=== PATIENT | female | born 1960 | race Caucasian/White ===

== ENCOUNTER → 2017-07-21 | Outpatient (CLI) | payer OTHER ==
--- NOTE | 2017-07-25 11:08 | MM ---
Reason for exam: screening (asymptomatic). Last mammogram was performed 1 year and 5 months ago. History: Patient is postmenopausal, has history of high-risk lesion on a previous biopsy at age 49, and is nulliparous. Family history of breast cancer in maternal aunt. Benign left breast needle localization of both breasts, July 31, 2010. High risk left mammotome panel of the left breast, July 15, 2010. Excisional biopsy of the left breast, 2003. Took hormonal contraceptives for 3 years beginning at age 20. Physical Findings: A clinical breast exam by your physician is recommended on an annual basis and results should be correlated with mammographic findings. MG 3D Screening Mammo W/Cad Bilateral CC and MLO view(s) were taken. Prior study comparison: March 01, 2016, bilateral MG 3d screening mammo w/cad. November 26, 2014, mammogram, performed at [facility]. The breast tissue is heterogeneously dense. This may lower the sensitivity of mammography. No suspicious abnormality. No significant changes when compared with prior studies. ASSESSMENT: Negative, BI-RAD 1 RECOMMENDATION: Routine screening mammogram of both breasts in 1 year.
== END | disposition home or self-care (01) ==
LOC: RADMAMWWP 06:52
PROVIDERS: ATTEND Family Medicine
DX: Z12.31 Encounter for screening mammogram for malignant neoplasm of breast (principal)
CPT/HCPCS: 77063; 77067

== ENCOUNTER → 2018-02-01 | Outpatient (CLI) | payer OTHER ==
--- NOTE | 2018-02-01 11:24 | US ---
EXAMINATION TYPE: US kidneys/renal and bladder DATE OF EXAM: 02/01/2018 COMPARISON: NONE CLINICAL HISTORY: Hematuria R31.9, R30.9 Painful Micturation. EXAM MEASUREMENTS: Right Kidney: 11.5 x x6.5 x 6.2 cm Left Kidney: 11.0 x 7.0 x 6.6 cm Right Kidney: No hydronephrosis or masses seen Left Kidney: No hydronephrosis or masses seen; dromedary hump Bladder: distended Bilateral Jets seen: Yes There is no evidence for hydronephrosis at this point in time. No nephrolithiasis is seen. No nicci s are identified. The urinary bladder is anechoic. Bilateral ureteral jets are seen. IMPRESSION: No distinct abnormality appreciated.
== END ==
LOC: RADUSWWP 10:41
PROVIDERS: ATTEND Family Medicine
DX: R31.9 Hematuria, unspecified (principal); R30.9 Painful micturition, unspecified
CPT/HCPCS: 76770

== ENCOUNTER → 2018-03-29 | Outpatient (CLI) | payer OTHER ==
--- NOTE | 2018-03-29 10:29 | CT ---
EXAMINATION TYPE: CT chest wo/w con DATE OF EXAM: 03/29/2018 COMPARISON: None HISTORY: Sarcoidosis CT DLP: 1213.6 mGycm, Automated exposure control for dose reduction was used. CONTRAST: Performed injected with 100 mL of Isovue 300. TECHNIQUE: Axial images were obtained at 5 mm thick sections. Reconstructed images are reviewed on Luminescent computer in the coronal plane. Images are evaluated pre and postcontrast. FINDINGS: Portion of the thyroid visualized is normal. No suspicious lung nodules or focal infiltrates are present. There is a 0.4 cm density within the per iphery of the right lung within the major fissure. Series 4 image 38. Monitoring of this area is harvinder mmended. No enlarged mediastinal or hilar adenopathy is evident. Couple of small shotty lymph nodes are pres ent. Tracheobronchial tree is visualized is normal. The ascending aorta diameter at the level of the main pulmonary artery is 3.1 cm. The main pulmonary artery diameter at the bifurcation is 2.[address] sections are obtained through the upper abdomen. Abdomen is essentially unremarkable. Note is made of a mild scoliosis to the thoracic spine. IMPRESSIONS: 1. 0.4 cm nodularity within the major fissure on the right base. Follow-up exam in 6 months is recomm ended.
== END ==
LOC: RADCTMAIN 06:41
PROVIDERS: ATTEND Internal Medicine Rheumatology
DX: J98.8 Other specified respiratory disorders (principal)
CPT/HCPCS: 71270; Q9967

== ENCOUNTER → 2018-09-27 | Outpatient (CLI) | payer OTHER ==
--- NOTE | 2018-09-27 11:15 | CT ---
EXAMINATION TYPE: CT chest wo/w con DATE OF EXAM: 09/27/2018 COMPARISON: 03/29/2018 HISTORY: Abnormal finding of lung CT DLP: 1027.20 mGycm. Automated Exposure Control for Dose Reduction was Utilized. TECHNIQUE: CT scan of the thorax is performed following without and with IV Contrast, patient inject ed with 100 ml mL of Isovue 300. FINDINGS: LUNGS: Minimal bibasilar subsegmental dependent atelectasis is seen. There are few scattered thin-wal led lung cysts/paraseptal blebs. There is no pleural effusion or pneumothorax seen. The tracheobronc hial tree is patent. There is decreased conspicuity of the now 2 mm pulmonary nodule in comparison to the prior of 03/29/2018 of the density near the right interlobar fissure appearing to represent a sm aller intrafissural lymph node. MEDIASTINUM: There are no greater than 1 cm hilar or mediastinal lymph nodes. No pericardial effusi on is seen. OTHER: A 1.9 cm left adrenal gland lesion is low-density meeting criteria for a benign lipid rich antony noma. Old healed right lateral rib fracture is present of rib 5 and rib 6. Minimal degenerative nieves es of the spine. IMPRESSION: 1. Smaller and less conspicuous nodule along the right interlobar fissure relating to a benign intraf issural lymph node. 2. Benign lipid rich left adrenal adenoma is incidentally seen.
== END | disposition home or self-care (01) ==
LOC: RADCTMAIN 08:58
PROVIDERS: ATTEND Family Medicine
DX: R91.1 Solitary pulmonary nodule (principal)
CPT/HCPCS: 71270; Q9967

== ENCOUNTER → 2019-12-11 | Outpatient (CLI) | payer OTHER ==
--- NOTE | 2019-12-17 11:55 | MM ---
Reason for exam: screening (asymptomatic). Last mammogram was performed 1 year and 4 months ago. History: Patient is postmenopausal, has history of high-risk lesion on a previous biopsy at age 49, and is nulliparous. Family history of breast cancer in maternal aunt and breast cancer in mother at age 79. Benign left breast needle localization of both breasts, July 31, 2010. High risk left mammotome panel of the left breast, July 15, 2010. Excisional biopsy of the left breast, 2003. Took hormonal contraceptives for 3 years beginning at age 20. Physical Findings: A clinical breast exam by your physician is recommended on an annual basis and results should be correlated with mammographic findings. MG 3D Screening Mammo W/Cad Bilateral CC and MLO view(s) were taken. Prior study comparison: July 27, 2018, bilateral MG 3d screening mammo w/cad. July 21, 2017, bilateral MG 3d screening mammo w/cad. There are scattered fibroglandular densities. There are benign appearing round calcifications bilaterally. There is no discrete abnormality. ASSESSMENT: Benign, BI-RAD 2 RECOMMENDATION: Routine screening mammogram of both breasts in 1 year.
== END | disposition home or self-care (01) ==
LOC: RADMAMWWP 14:52
PROVIDERS: ATTEND Family Medicine
DX: Z12.31 Encounter for screening mammogram for malignant neoplasm of breast (principal)
CPT/HCPCS: 77063; 77067

== ENCOUNTER → 2021-05-29 | Outpatient (CLI) | payer OTHER ==
--- NOTE | 2021-05-29 12:47 | MM ---
Reason for exam: screening (asymptomatic). Last mammogram was performed 1 year and 6 months ago. History: Patient is postmenopausal, has history of high-risk lesion on a previous biopsy at age 49, and is nulliparous. Family history of breast cancer in maternal aunt and breast cancer in mother at age 79. Benign left breast needle localization of both breasts, July 31, 2010. High risk left mammotome panel of the left breast, July 15, 2010. Excisional biopsy of the left breast, 2003. Took hormonal contraceptives for 3 years beginning at age 20. Physical Findings: A clinical breast exam by your physician is recommended on an annual basis and results should be correlated with mammographic findings. MG 3D Screening Mammo W/Cad Bilateral CC and MLO view(s) were taken. Prior study comparison: December 11, 2019, bilateral MG 3d screening mammo w/cad. July 27, 2018, bilateral MG 3d screening mammo w/cad. There are scattered fibroglandular densities. There are benign appearing round calcifications bilaterally. There is chronic nodularity in the left breast. There is no discrete abnormality. ASSESSMENT: Benign, BI-RAD 2 RECOMMENDATION: Routine screening mammogram of both breasts in 1 year.
== END | disposition home or self-care (01) ==
LOC: RADMAMWWP 08:05
PROVIDERS: ATTEND Family Medicine
DX: Z12.31 Encounter for screening mammogram for malignant neoplasm of breast (principal); Z78.0 Asymptomatic menopausal state; Z80.3 Family history of malignant neoplasm of breast
CPT/HCPCS: 77063; 77067

== ENCOUNTER 2021-11-27 06:13 | Emergency (ER) | payer OTHER ==
[2021-11-27 06:22] VITALS: TEMP 98.1
[2021-11-27] MEDS ORDERED: SODIUM CHLORIDE 0.9% 500 ML 500 ML IV STA (06:43)
[2021-11-27] MEDS ORDERED: ONDANSETRON 4 MG/2 ML VIAL IVP STA (06:43)
[2021-11-27] MEDS ORDERED: HYDROmorphone 0.5 MG/0.5 ML SYRINGE IVP STA (06:43)
--- NOTE | 2021-11-27 06:46 | ED ---
Upper Extremity HPI <Nico Brooke - Last Filed: 11/27/21 08:03> - General Source: patient Mode of arrival: ambulatory Limitations: no limitations <Taj Hudson - Last Filed: 11/27/21 08:29> - General Chief Complaint: Extremity Injury, Upper Stated Complaint: poss broken wrist Time Seen by Provider: 11/27/21 06:17 - History of Present Illness Initial Comments: This a 61-year-old female presents emergency Department with chief complaint of left first injury. Patient states she slipped on the tile floor causing her to fall. Patient landed on her left wrist. Patient states is deformed no head injury no loss conscious denies any other injury associated with her fall. Patient has no current paresthesias. Patient denies any prior surgeries to her left wrist. (Taj Hudson) - Related Data Allergies Allergy/AdvReac Type Severity Reaction Status Date / Time Sulfa (Sulfonamide Allergy Anaphylaxis Verified 11/27/21 06:22 Antibiotics) Review of Systems ROS Other: All systems not noted in ROS Statement are negative. <Nico Brooke - Last Filed: 11/27/21 08:03> ROS Other: All systems not noted in ROS Statement are negative. <Taj Hudson - Last Filed: 11/27/21 08:29> ROS Statement: Those systems with pertinent positive or pertinent negative responses have been documented in the HPI. Past Medical History Past Medical History: Hypertension History of Any Multi-Drug Resistant Organisms: None Reported Past Surgical History: Hysterectomy Past Psychological History: No Psychological Hx Reported Smoking Status: Never smoker Past Alcohol Use History: Occasional Past Drug Use History: None Reported <Taj Hudson - Last Filed: 11/27/21 08:29> General Exam Limitations: no limitations General appearance: alert, in no apparent distress Head exam: Present: atraumatic, normocephalic, normal inspection Respiratory exam: Present: normal lung sounds bilaterally. Absent: respiratory distress, wheezes, rales, rhonchi, stridor Cardiovascular Exam: Present: regular rate, normal rhythm, normal heart sounds. Absent: systolic murmur, diastolic murmur, rubs, gallop, clicks Extremities exam: Present: other (Left wrist distal radius, ulna obvious deformity neurovascular intact, diffuse tenderness.) Neurological exam: Present: alert, oriented X3 Skin exam: Present: warm, dry, intact, normal color. Absent: rash <Taj Hudson - Last Filed: 11/27/21 08:29> Course Vital Signs 11/27/21 11/27/21 11/27/21 06:16 07:34 07:39 Temperature 98.1 F Pulse Rate 102 H 89 87 Respiratory 18 16 16 Rate Blood Pressure 194/144 144/114 168/104 O2 Sat by Pulse 96 96 100 Oximetry 11/27/21 11/27/21 11/27/21 07:44 07:49 08:04 Temperature Pulse Rate 82 103 H 75 Respiratory 16 16 18 Rate Blood Pressure 159/96 156/109 169/96 O2 Sat by Pulse 95 93 L 94 L Oximetry 11/27/21 08:19 Temperature Pulse Rate 71 Respiratory 18 Rate Blood Pressure 148/106 O2 Sat by Pulse 94 L Oximetry Procedures - Procedural Sedation Procedural Sedation Start Time: :34 Procedural Sedation Stop Time: :44 Indications: fracture/dislocation reduction ASA Class: I Mallampati Airway Score: 2 Preparation: cardiac rehab nurse applied, pulse oximeter, capnometry used, supplemental O2 applied, suction/airway equipment at bedside, IV secured IV Propofol Dose (mgs): 80 Complications: none Patient Tolerated Procedure: well <Nico Brooke - Last Filed: 11/27/21 08:03> - Orthopedic Fracture Reduction Fracture #1 Consent Obtained: written consent Side: left Fracture Reduction Location: radius, ulna Analgesia: procedural sedation Technique: direct manipulation Post Reduction X-rays Demonstrate: acceptable reduction Post-Reduction Neuro Exam: intact Post-Reduction Vascular Exam: intact Splint Applied: Yes Patient Tolerated Procedure: well, no complications - Orthopedic Splinting/Casting Injury #1 Side: left Upper Extremity Injury Location: wrist Upper Extremity Immobilizer: sugar tong splint, synthetic pre-padded splint <Taj Hudson - Last Filed: 11/27/21 08:29> Medical Decision Making <Taj Hudson - Last Filed: 11/27/21 08:29> - Medical Decision Making 54-year-old female presented for fall. Patient did have displaced angular fracture of her left wrist attempted reduction, tibial fracture. There was some mild improvement with angulation. I discussed the case with advanced orthopedics Dr. Grady in which the patient is to call office today and will be seen on Tuesday. (Taj Hudson) Disposition <Nico Brooke - Last Filed: 11/27/21 08:03> Is patient prescribed a controlled substance at d/c from ED?: No Time of Disposition: 08:29 <Taj Hudson - Last Filed: 11/27/21 08:29> Clinical Impression: Distal radius fracture, left Disposition: HOME SELF-CARE Condition: Stable Instructions (If sedation given, give patient instructions): Arm Fracture in Adults (ED), Moderate Sedation (ED) Additional Instructions: Please return to the Emergency Department if symptoms worsen or any other concerns. Referrals: Candi Avery MD [Primary Care Provider] - 1-2 days Jorge A De Los Santos DO [Doctor of Osteopathic Medicine] - 1-2 days
--- NOTE | 2021-11-27 07:05 | XR ---
EXAMINATION TYPE: XR wrist complete LT DATE OF EXAM: 11/27/2021 6:40 AM INDICATION: Patient age:Female; 61 years old; Reason for study: pain; COMPARISON: None TECHNIQUE: 4 views of the left wrist. Frontal, navicular, lateral, and oblique. FINDINGS: Impacted distal left radius fracture with dorsal angulation. There is extension into the di stal radioulnar joint. Definitive extension to the radioulnar joint. There is soft tissue swelling wr ist. No additional fractures identified. IMPRESSION: Acute left distal radius impacted fracture with dorsal angulation intra-articular extension into the distal radioulnar joint.
[2021-11-27] MEDS: PROPOFOL 10 MG/ML 20 ML VIAL IV STA ×3 (07:33→07:53)
[2021-11-27 08:06] VITALS: RESP 18
--- NOTE | 2021-11-27 08:13 | XR ---
EXAMINATION TYPE: XR wrist limited LT DATE OF EXAM: 11/27/2021 CLINICAL HISTORY: pain TECHNIQUE: Post reduction left wrist 2 views COMPARISON: None. FINDINGS: Overlying cast material does obscure fine bony detail. Previously described distal radial f racture with comminution and displacement persists. There is improved angulation. Displacement persis ts. IMPRESSION: As above
[2021-11-27] MEDS ORDERED: KETOROLAC 15 MG/ML 1 ML VIAL IVP STA (08:28)
[2021-11-27] MEDS ORDERED: ACET/COD 300 MG/30 MG STARTER PACK 6 TAB BTL PO STA (08:29)
[2021-11-27 09:16] VITALS: BP 157/97; PULSE 65
== END 2021-11-27 09:19 | disposition home or self-care (01) ==
LOC: EC 06:13
DX: S52.502A Unspecified fracture of the lower end of left radius, initial encounter for closed fracture (principal); Z88.2 Allergy status to sulfonamides; I10 Essential (primary) hypertension; W19.XXXA Unspecified fall, initial encounter
CPT/HCPCS: 73100; 73110; 25605; 99284; J2405; J1885; J2704; J1170

== ENCOUNTER → 2021-12-01 | Outpatient (CLI) | payer OTHER ==
[2021-12-01 14:19] LABS: Basophils # (A) 0.05 X 10*3/uL (0.00-0.10); Basophils % (A) 0.8 %; Eosinophils % (A) 3.1 %; HCT 44.7 % (37.2-46.3); HGB 14.5 g/dL (12.0-15.0); Immature Grans, Automated 0.5 %; Lymphocytes # (A) 1.71 X 10*3/uL (0.90-5.00); Lymphocytes % (A) 26.3 %; MCH 29.4 pg (27.0-32.0); MCHC 32.4 g/dL (32.0-37.0); MCV 90.5 fL (80.0-97.0); Mean Platelet Volume 11.4 fL (9.5-12.2); Monocytes # (A) 0.38 X 10*3/uL (0.20-1.00); Monocytes % (A) 5.8 %; NRBC Per 100 WBC 0 /100 WBCS (0.0-0.0); Neutrophils # (A) 4.13 X 10*3/uL (1.80-7.70); Neutrophils % (A) 63.5 %; Platelet Count 318 X 10*3/uL (140-440); RBC 4.94 X 10*6/uL (4.10-5.20); RDW 12.2 % (11.5-14.5)
[2021-12-01 14:25] LABS: Anion Gap 11.1 mmol/L (10.00-18.00); Carbon Dioxide 24.5 mmol/L (20.0-27.5); Potassium 4.3 mmol/L (3.5-5.5)
== END | disposition home or self-care (01) ==
LOC: LABPAT 10:10
PROVIDERS: ATTEND Orthopaedic Surgery Hand Surgery
DX: Z01.818 Encounter for other preprocedural examination (principal)
CPT/HCPCS: 80051; 85025; 93005

== ENCOUNTER 2021-12-02 12:47 | Day surgery (SDC) | payer OTHER ==
--- NOTE | 2021-12-01 20:27 | P.HPOR ---
History of Present Illness H&P Date: 12/01/21 Chief Complaint: Left distal radius fracture Subjective: This is a 61 year old female that presents today for initial evaluation regarding a left wrist injury that occurred on 11/27/21. She was in the bathroom when she tripped and fell onto an outstretched hand. She went to the ED the day of her injury and her wrist was reduced and splinted. She is RHD, denies any prior injury and works at a desk job. She denies any paresthesias. Physical Examination: LUE: AIN/PIN/Radial/Ulnar/Median motor intact. Radial/Ulnar/Median SILT. 2+/4 Radial/Ulnar pulses palpated. 5/5 APB, 5/5 FDI. Negative Finkelsteins, negative CMC grind, negative Durkan's compression. Bruising/swelling over dorsal distal radius with TTP. EPL/FPL intact. Imaging: X-Rays of the left wrist a demonstrate a comminuted extra-articular displaced distal radius fracture with 50% dorsal displacement and 25 degrees of dorsal angulation. Impression: 1.) Left displaced distal radius fracture, 2 part. Plan: Diagnosis and treatment options were discussed with the patient. Due to patient age, activity level and radiographic findings I recommend surgical intervention. Risks and benefits of surgery including bleeding, infection, damage to surrounding tissue, need for further surgery, residual numbness were discussed and the patient wished to go forward with surgery. She will be scheduled for a left distal radius ORIF in the near future. Labs/EKG are ordered. She will require 4 weeks of non-weightbearing after surgery and may work in her splint if desired but is not to lift anything heavier than a pen or pencil until post op week 6. -Jorge A De Los Santos DO Orthopedic Hand/Upper Extremity Surgeon Past Medical History Past Medical History: Hypertension Additional Past Medical History / Comment(s): ROSACEA. History of Any Multi-Drug Resistant Organisms: None Reported Past Surgical History: Hysterectomy Additional Past Surgical History / Comment(s): BREAST LUMPECTOMY-NEGATIVE. Past Anesthesia/Blood Transfusion Reactions: No Reported Reaction Past Psychological History: No Psychological Hx Reported Smoking Status: Never smoker Past Alcohol Use History: Occasional Past Drug Use History: None Reported - Past Family History Mother Family Medical History: Cancer Additional Family Medical History / Comment(s): BREAST Medications and Allergies Home Medications Medication Instructions Recorded Confirmed Type Acetaminophen Tab [Tylenol] 325 - 650 mg PO Q6H PRN 12/01/21 12/01/21 History Ibuprofen [Motrin Ib] 200 - 400 mg PO Q6H PRN 12/01/21 12/01/21 History Magnesium 1 tab PO DAILY 12/01/21 12/01/21 History Multivitamins, Thera [Multivitamin 1 tab PO DAILY 12/01/21 12/01/21 History (formulary)] [place]on-3/Dha/Epa/Fish Oil [Fish Oil 1 cap PO DAILY 12/01/21 12/01/21 History 1,000 mg Softgel] Spironolactone [Aldactone] 50 mg PO QAM 12/01/21 12/01/21 History metroNIDAZOLE 0.75% CREAM 1 applic TOPICAL BID 12/01/21 12/01/21 History [Metrocream 0.75%] Allergies Allergy/AdvReac Type Severity Reaction Status Date / Time Sulfa (Sulfonamide Allergy Anaphylaxis Verified 12/01/21 12:19 Antibiotics) Physical Examination Osteopathic Statement: *. No significant issues noted on an osteopathic structural exam other than those noted in the History and Physical/Consult.
[~2021-12-02 12:47] MED LIST: DEXAMETHASONE SOD PHOSPHATE 4 MG/ML 1 ML VIAL IV ONE; HYDROmorphone 0.5 MG/0.5 ML SYRINGE IVP PRN; LACTATED RINGERS 1,000 ML IV SCH; LIDOCAINE 1% (10MG/ML) FOR IV START INTRADERMA PRN; METOCLOPRAMIDE 5 MG/ML 2 ML VIAL IVP PRN; ONDANSETRON 4 MG/2 ML VIAL IVP ONE
[2021-12-02] MEDS ORDERED: fentaNYL (PF) 50 MCG/ML 2 ML AMP IVP ONE (13:33)
[2021-12-02] MEDS ORDERED: MIDAZOLAM 2 MG/2 ML VIAL IVP ONE (13:33)
[2021-12-02] MEDS ORDERED: fentaNYL (PF) 50 MCG/ML 2 ML AMP ONE (14:26)
[2021-12-02] MEDS ORDERED: ROPIVACAINE 5 MG/ML 30 ML VIAL ONE (14:26)
[2021-12-02] MEDS ORDERED: LIDOCAINE 2% INJ 20 MG/ML (2 ML VIAL) ONE (14:26)
[2021-12-02] MEDS ORDERED: PROPOFOL 10 MG/ML 20 ML VIAL IV ONE (14:26)
[2021-12-02] MEDS ORDERED: MIDAZOLAM 2 MG/2 ML VIAL ONE (14:26)
[2021-12-02] MEDS ORDERED: HYDROmorphone (PF) 1 MG/ML ONE (14:26)
--- NOTE | 2021-12-02 14:53 | P.ANPRN ---
Procedure Note - Anesthesia - Nerve Block Performed Left Axillary Time Out Performed: Yes (:32) Date of Procedure: 12/02/21 Procedure Start Time: Procedure Stop Time: : Location of Patient: PreOp Indication: Acute Post-Operative Pain, Requested by Surgeon (Dr De Los Santos) Sedation Type: Sedate with meaningful contact maintained Preparation: Sterile Prep Position: Supine Catheter: None Needle Types: Pajunk Needle Gauge: Other (see comment) (22g) Ultrasound used to visualize needle placement: Yes Ultrasound used to observe medication spread: Yes Injectate: 0.5% Ropivacaine (see comment for volume) (20cc) Blood Aspirated: No Pain Paresthesia on Injection Noted: No Resistance on Injection: Normal Image Stored and Saved: Yes Events: Uneventful and Well Tolerated
[2021-12-02 15:54] VITALS: RESP 16; TEMP 97.2
--- NOTE | 2021-12-02 15:58 | P.OP ---
Date of Procedure: 12/02/21 Preoperative Diagnosis: 1.) Left distal radius fracture, displaced. Postoperative Diagnosis: 1.) Left distal radius fracture, displaced. Procedure(s) Performed: 1.) Open reduction internal fixation of left distal radius fracture, 2 parts. Implants: Bennett/Biomet DVR crosslock distal radius plate, Standard length, narrow width. Anesthesia: regional Surgeon: Jorge A De Los Santos Editing Clerk #1: Darren Morales Estimated Blood Loss (ml): 5 Pathology: none sent Condition: stable Disposition: PACU Description of Procedure: This is a 61 year old female who sustained a displaced intra-articular distal radius fracture and presents today for open reduction internal fixation of their left distal radius fracture . Risks and benefits of surgery were discussed with the patient including bleeding, damage to surrounding tissue, infection, need f or further surgery as well as risks of anesthesia including pulmonary embolism and even and the patient wished to proceed with surgical intervention. The patients was seen in the pre-operative area by myself. Consent and H&P were completed and updated. The correct extremity was marked in the pre-operative area by myself and all other questions were answered. Operative Narrative: The patient was brought to the operating room by the department of anesthesia. They remained on the portable stretcher and a rolling hand table was brought to the side of the operative extremity. Pre-operative time out was performed indicating the correct patient, procedure and laterality. All in the room agreed. Pre-operative antibiotics were given prior to skin incision. The patient was then drifted off to sleep by the department of anesthesia. A nonsterile tourniquet was then applied to the operative extremity and the left upper extremity was then prepped and draped in normal sterile fashion. The operative extremity was the exsanguinated with an esmarch bandage and the tourniquet was inflated to 250mmHg. A longitudinal incision centered over the FCR tendon was made with a 15-blade scalpel. Blunt dissection was taken down to the FCR tendon sheath using Bovie cautery for meticulous hemostasis. The FCR sheath was opened with tenotomy scissors. The floor of the FCR sheath was then incised with a 15-blade scalpel and the FPL tendon and muscle belly was swept bluntly in an ulnar direction to reveal the pronator quadratus. Pronator quadratus was sharply incised with a 15-blade scalpel along the radial border of the distal radius, coming across transversely parallel to the joint at the level of the watershed line, radial artery was identified and protected. Periosteal elevator was then used to elevate the pronator quadratus off the distal radius from a radial to ulnar fashion. A [place] elevator was used to lever the distal piece back into place and free up the fractured fragments. A standard length/narrow width Bennett/biomet crosslock DVR plate was chosen to fit the patients anatomy best. This was placed on the distal radius under direct visualization and the K- wire was placed in the shaft k-wire hole. The fracture was then reduced to the plate distally and a k-wire was placed in the ulnar most k-wire hole in the proximal row. Fluoroscopy was then utilized to confirm correct placement of plate in the radial/ulnar plane and distal k-wire placement was confirmed to be proximal to the subchondral bone on 20 degree elevated lateral view confirming extra- articular screw placement. Baptism of radial height, inclination and volar tilt was achieved. The oblong hole was drilled and filled with a cortical screw. The proximal row and radial styloid screw hole was then drilled and filled from ulnar to radial with locking screws. Distal row was then drilled and filled with locking smooth pegs. Attention was then brought to the proximal shaft screws. Proximal crosslocking shaft screws were drilled with a nonlocking screws. The wrist joint was the ranged and full smooth flexion/extension with no crepitus appreciated. Final imaging was taken confirming extra-articular placement of distal screws at DRUJ and radiocarpal joint. The wound was then irrigated. Subcutaneous closure was performed with 4-0 Monocryl followed by skin closure with 4-0 Monocryl suture. Sterile dressing consisting of mastisol, steri strips, 4x4s, and a volar plaster splint was applied. Tourniquet was let down and the hand had immediate perfusion. The patient was then woken by the department of anesthesia and transferred to PACU in stable condition. The patient was then woken by the department of anesthesia and transferred to PACU in stable condition. Darren HALL was present for the case and assisted in major portions of the operation and hardware placement. Jorge A De Los Santos D.O. Orthopedic Hand/Upper Extremity Surgeon
[2021-12-02] MEDS ORDERED: HYDROcodone/APAP 5-325MG 1 EACH TAB PO ONE (16:50)
[2021-12-02] MEDS ORDERED: HYDROcodone/APAP 5-325MG 1 EACH TAB ONE (16:51)
[2021-12-02 17:01] VITALS: BP 149/85; PULSE 82
[2021-12-02] MEDS ORDERED: ONDANSETRON ODT 4 MG TAB PO ONE (17:24)
== END 2021-12-02 17:26 | disposition home or self-care (01) ==
LOC: OR 12:47
PROVIDERS: ATTEND Orthopaedic Surgery Hand Surgery
DX: S52.572A Other intraarticular fracture of lower end of left radius, initial encounter for closed fracture (principal); G89.18 Other acute postprocedural pain; I10 Essential (primary) hypertension; Z80.3 Family history of malignant neoplasm of breast; Z79.899 Other long term (current) drug therapy; Z88.2 Allergy status to sulfonamides; W01.0XXA Fall on same level from slipping, tripping and stumbling without subsequent striking against object, initial encounter
CPT/HCPCS: 25608; 64417; 76942; J2250; J1100; J0690; J2405; J3010; J1170; J2795; J2704; J2001; 64447

== ENCOUNTER 2022-02-02 08:14 | Day surgery (SDC) | payer OTHER ==
[2022-01-28 16:48] VITALS: BMI 34.8
[~2022-02-02 08:14] MED LIST changes: -DEXAMETHASONE SOD PHOSPHATE 4 MG/ML 1 ML VIAL IV ONE; -HYDROmorphone 0.5 MG/0.5 ML SYRINGE IVP PRN; -LIDOCAINE 1% (10MG/ML) FOR IV START INTRADERMA PRN; -METOCLOPRAMIDE 5 MG/ML 2 ML VIAL IVP PRN; -ONDANSETRON 4 MG/2 ML VIAL IVP ONE
[2022-02-02 09:19] VITALS: RESP 16; TEMP 98.6
[2022-02-02] MEDS ORDERED: LIDOCAINE 2% INJ 20 MG/ML (2 ML VIAL) ONE (09:39)
[2022-02-02] MEDS ORDERED: PROPOFOL 10 MG/ML 20 ML VIAL IV ONE (09:39)
--- NOTE | 2022-02-02 09:42 | P.GSHP ---
History of Present Illness H&P Date: 02/02/22 Chief Complaint: Colon cancer screening 61-year-old female here today for colonoscopy. Last colonoscopy 10 years ago. No bowel complaints. Family history of colon cancer in a grandparent. Past Medical History Past Medical History: Hypertension, Skin Disorder Additional Past Medical History / Comment(s): rosacea History of Any Multi-Drug Resistant Organisms: None Reported Past Surgical History: Hysterectomy, Orthopedic Surgery Additional Past Surgical History / Comment(s): benign lump removed from breast,ORIF lt wrist Past Anesthesia/Blood Transfusion Reactions: No Reported Reaction Smoking Status: Former smoker - Past Family History Mother Family Medical History: Cancer Additional Family Medical History / Comment(s): BREAST Medications and Allergies Home Medications Medication Instructions Recorded Confirmed Type Magnesium 200 mg PO DAILY 12/01/21 02/02/22 History Multivitamins, Thera [Multivitamin 1 tab PO DAILY 12/01/21 02/02/22 History (formulary)] [place]-3/Dha/Epa/Fish Oil [Fish Oil 1 cap PO DAILY 12/01/21 02/02/22 History 1,000 mg Softgel] Spironolactone [Aldactone] 50 mg PO QAM 12/01/21 02/02/22 History metroNIDAZOLE 0.75% CREAM 1 applic TOPICAL BID 12/01/21 02/02/22 History [Metrocream 0.75%] Allergies Allergy/AdvReac Type Severity Reaction Status Date / Time Sulfa (Sulfonamide Allergy Anaphylaxis Verified 02/02/22 09:12 Antibiotics) Surgical - Exam Vital Signs Temp Pulse Resp BP Pulse Ox 98.6 F 76 16 166/85 96 02/02/22 09:13 02/02/22 09:13 02/02/22 09:13 02/02/22 09:13 02/02/22 09:13 Physical exam: General: Well-developed, well-nourished HEENT: Normocephalic, sclerae nonicteric Abdomen: Nontender, nondistended Extremities: No edema Neuro: Alert and oriented Assessment and Plan (1) Colon cancer screening Narrative/Plan: Will proceed with colonoscopy at this time Current Visit: Yes Status: Acute Code(s): Z12.11 - ENCOUNTER FOR SCREENING FOR MALIGNANT NEOPLASM OF COLON SNOMED Code(s): 984856909
--- NOTE | 2022-02-02 09:55 | P.PCN ---
Date of Procedure: 02/02/22 Procedure(s) Performed: PREOPERATIVE DIAGNOSIS: Colon cancer screening POSTOPERATIVE DIAGNOSIS: Normal exam PROCEDURE: Colonoscopy ANESTHESIA: MAC SURGEON: Jerrod Avery M.D. SPECIMENS: None ENDOSCOPIC PROCEDURE: The patient was placed on the endoscopy table in the left decubitus position. The Olympus colonoscope was inserted into the anus and passed under direct visualization to the base of the cecum. The appendiceal orifice was visualized. From that point the scope was slowly withdrawn inspecti ng all surfaces carefully. There were no neoplastic inflammatory or polypoid lesions throughout the cecum, ascending, transverse, descending, sigmoid and rectum. There was no visible diverticulosis noted. Digital rectal examination was normal. The patient was taken to the recovery room in stable condition per anesthesia guidelines. RECOMMENDATIONS: Resume diet. Follow-up colonoscopy 7-10 years.
[2022-02-02 10:36] VITALS: BP 135/83; PULSE 86
== END 2022-02-02 10:38 | disposition home or self-care (01) ==
LOC: ORWHC2ENDO 08:14
PROVIDERS: ATTEND Surgery
DX: Z12.11 Encounter for screening for malignant neoplasm of colon (principal); I10 Essential (primary) hypertension; Z87.891 Personal history of nicotine dependence; Z79.899 Other long term (current) drug therapy
CPT/HCPCS: 45378; J2704; J2001

== ENCOUNTER → 2022-08-30 | Outpatient (CLI) | payer OTHER ==
--- NOTE | 2022-08-31 08:24 | BD ---
EXAMINATION TYPE: Axial Bone Density DATE OF EXAM: 08/30/2022 CLINICAL HISTORY: 61 years old Female. ICD-10 CODE: Z78.0 MENOPAUSAL STATE Height: 70.25 Weight: 246.7 FRAX RISK QUESTIONS: Alcohol (3 or more units per day): no Family History (Parent hip fracture): Father Glucocorticoids (More than 3mos): no History of Fracture in Adulthood: Wrist Secondary Osteoporosis: 1. Type 1 Diabetes: no 2. Hyperthyroidism: no 3. Menopause before 45: no 4. Malnutrition: no 5. Chronic liver disease: no Rheumatoid Arthritis: no Current Tobacco Use: no RISK FACTORS HISTORY OF: Hip Fracture (Right/Left): no Spine Fracture: no History of Wrist Fracture: Lt When: 11/2021 Surgery to Spine/Hip(right/left)/Wrist (right/left): Lt wrist November 2021 Family History of Osteoporosis: no Active: yes Diet low in dairy products/other sources of calcium: yes Postmenopausal woman: yes Take estrogen and/or progesterone medications: no Lost more than 2 inches in height since high school: no Frequent falls: no Poor Health: no Hyperparathyroidism: no Adrenal Insufficiency: no MEDICATIONS: Prednisone or other steroids: no Thyroid Medications: no Osteoporosis Medications:no Additional Medications: BP Meds x2, Metformin, Calcium, Multi Vit., Additional History: EXAM MEASUREMENTS: Bone mineral densitometry was performed using the [employer] System. Bone mineral density as measured about the Lumbar spine is: ----- L1-L4(G/cm2): 1.249 T Score Values are as follows: ----- L1: 0.6 ----- L2: 0.1 ----- L3: 1.3 ----- L4: 0.2 ----- L1-L4: 0.6 Z Score Values are as follows: ----- L1: 0.6 ----- L2: 0.1 ----- L3: 1.3 ----- L4: 0.2 ----- L1-L4: 0.6 2019 Images are not available, new baseline study. Bone mineral density about the R hip (g/cm2): 0.970 Bone mineral density about the L hip (g/cm2): 1.007 T Score values are as follows: -----R Neck: -0.6 -----L Neck: -0.9 -----R Total: -0.3 -----L Total: 0.0 Z Score values are as follows: -----R Neck: -0.1 -----L Neck: -0.5 -----R Total: -0.2 -----L Total: 0.1 2019 images are not available, new baseline study. FRAX%s: The graph provided illustrates a 21.8% chance for a major osteoporotic fx and a 0.6% chance f or the hips probability for fx in 10 years time. IMPRESSION: Normal (Values between +1 and -1 indicate normal bone mass). Consider repeating this study in 5 year s or sooner if there is some new clinical indication. NOTE: T-SCORE=SD OF THE YOUNG ADULT MEAN.
--- NOTE | 2022-08-31 19:14 | MM ---
Reason for Exam: Screening (asymptomatic). Last mammogram was performed 1 year(s) and 3 month(s) ago. Patient History: Menarche at age 13. Patient has no children. Left ovary removed at age 40. Hysterectomy at age 40. Postmenopausal. Hormonal Contraceptives for 3 years from age 20 until age 23. 2003, Excisional Biopsy on the Left side. 07/31/2010, Bilateral Benign Excisional Biopsy. 07/15/2010, High risk Core Biopsy on the left side. Maternal aunt had breast cancer. Mother had breast cancer, age 79. Risk Values: Terrie 5 year model risk: 4.5%. NCI Lifetime model risk: 22.3%. Prior Study Comparison: 07/27/2018 Bilateral Screening Mammogram, [facility]. 12/11/2019 Bilateral Screening Mammogram, [facility]. 05/29/2021 Bilateral Screening Mammogram, [facility]. Tissue Density: There are scattered fibroglandular densities. Findings: Analyzed By CAD. Unchanged intramammary lymph node lateral left breast chronic nodularity superior anterior right MLO view. There is no suspicious group of microcalcifications or new suspicious mass in either breast. Overall Assessment: Benign, BI-RAD 2 Management: Screening Mammogram of both breasts in 1 year. 1. Per NCCN guidelines, a 5 year risk greater than 1.67% is used to assess eligibility for risk reduction therapy. Consider specialist referral for further assessment. 2. In addition, note the patient's increased (greater than 20%) lifetime risk for the development of breast cancer. The patient may qualify for alternating screening with mammogram and breast MRI. 3. Patient should continue monthly self breast exams. Negative results should not preclude additional follow-up of suspicious palpable abnormalities. Electronically signed and approved by: Lyn Ramirez M.D. Radiologist
== END | disposition home or self-care (01) ==
LOC: RADMAMWWP 15:09
PROVIDERS: ATTEND Family Medicine
DX: Z12.31 Encounter for screening mammogram for malignant neoplasm of breast (principal); Z78.0 Asymptomatic menopausal state; Z80.3 Family history of malignant neoplasm of breast
CPT/HCPCS: 77063; 77067; 77080

== ENCOUNTER → 2023-11-02 | Outpatient (CLI) | payer OTHER ==
--- NOTE | 2023-11-03 08:28 | MM ---
Reason for Exam: Screening (asymptomatic). Last mammogram was performed 1 year(s) and 2 month(s) ago. Patient History: Menarche at age 13. Patient has no children. Left ovary removed at age 40. Hysterectomy at age 40. Postmenopausal. Hormonal Contraceptives for 3 years from age 20 until age 23. 2003, Excisional Biopsy on the Left side. 07/31/2010, Bilateral Benign Excisional Biopsy. 07/15/2010, High risk Core Biopsy on the left side. Maternal aunt had breast cancer. Mother had breast cancer, age 79. Risk Values: Terrie 5 year model risk: 4.8%. NCI Lifetime model risk: 21.2%. Prior Study Comparison: 12/11/2019 Bilateral Screening Mammogram, [facility]. 05/29/2021 Bilateral Screening Mammogram, [facility]. 08/30/2022 Bilateral MG 3D screening mammo w/cad, [facility]. Tissue Density: There are scattered areas of fibroglandular density. Findings: Analyzed By CAD. There is no suspicious group of microcalcifications or new suspicious mass in either breast. Overall Assessment: Benign, BI-RAD 2 Management: Screening Mammogram of both breasts in 1 year. . Patient should continue monthly self-breast exams. A clinical breast exam by your physician is recommended on an annual basis. This exam should not preclude additional follow-up of suspicious palpable abnormalities. Note on Terrie scores and lifetime risk: 1. A Terrie score greater than 3% is considered moderate risk. If this is the case, consider specialist referral to assess eligibility for a risk reducing agent. 2. If overall lifetime risk for the development of breast cancer is 20% or higher, the patient may qualify for future screening with alternating mammogram and breast MRI. Electronically signed and approved by: Nick Mallory M.D. Radiologis
== END | disposition home or self-care (01) ==
LOC: RADMAMWWP 07:12
PROVIDERS: ATTEND Family Medicine
DX: Z12.31 Encounter for screening mammogram for malignant neoplasm of breast (principal); Z80.3 Family history of malignant neoplasm of breast
CPT/HCPCS: 77063; 77067

== ENCOUNTER 2024-03-02 11:46 | Observation (INO) | payer OTHER ==
--- NOTE | 2024-03-02 11:58 | ED ---
Chest Pain HPI - General Source: patient, RN notes reviewed Mode of arrival: wheelchair Limitations: no limitations <Anjali Garcia - Last Filed: 03/02/24 11:58> <Martín Aparicio - Last Filed: 03/02/24 14:59> - General Chief Complaint: Chest Pain Stated Complaint: Chest pain, MANOLO Time Seen by Provider: 03/02/24 11:58 - History of Present Illness Initial Comments: Quick note: 63-year-old female presented to the ER with a chief complaint of chest discomfort. She states for the past couple days she has been feeling lightheaded. She states approximately an hour to an hour and a half prior to arrival she started to experience right rib pain that radiated into her central chest. She states her right jaw also feels numb. Admits to shortness of breath. No known cardiac history. (Anjali Garcia) This is a 63-year-old female who presented to the emergency department stating that the last few days she has not been feeling well but this morning about 10:00 she started having chest discomfort that radiated to her right jaw. Patient also states has been short of breath and diaphoretic with the pain. Patient states now the pain is better but is still there very slightly. Patient is a diabetic with high blood pressure and high cholesterol she has a very strong family history of heart disease. Patient herself has had no heart problems that she knows of. Patient denies any recent fever chills or cough. Patient has any swelling in the legs or calf tenderness. (Martín Aparicio) - Related Data Home Medications Medication Instructions Recorded Confirmed Spironolactone [Aldactone] 50 mg PO QAM 12/01/21 03/02/24 lisinopriL 2.5 mg PO DAILY 03/02/24 03/02/24 metFORMIN HCL [Glucophage] 500 mg PO BID 03/02/24 03/02/24 metroNIDAZOLE 1% GEL [Metrogel 1%] 1 applic TOPICAL BID 03/02/24 03/02/24 Allergies Allergy/AdvReac Type Severity Reaction Status Date / Time Sulfa (Sulfonamide Allergy Anaphylaxis Verified 03/02/24 14:51 Antibiotics) /rash Review of Systems ROS Other: All systems not noted in ROS Statement are negative. <Anjali Garcia - Last Filed: 03/02/24 11:58> ROS Other: All systems not noted in ROS Statement are negative. <Martín Aparicio - Last Filed: 03/02/24 14:59> ROS Statement: Those systems with pertinent positive or pertinent negative responses have been documented in the HPI. Past Medical History Past Medical History: Diabetes Mellitus, Hypertension Additional Past Medical History / Comment(s): ROSACEA. History of Any Multi-Drug Resistant Organisms: None Reported Past Surgical History: Hysterectomy Additional Past Surgical History / Comment(s): BREAST LUMPECTOMY-NEGATIVE, L wrist, fatty tumors remove, dental implant Past Anesthesia/Blood Transfusion Reactions: No Reported Reaction Past Psychological History: No Psychological Hx Reported Smoking Status: Former smoker Past Alcohol Use History: Occasional Past Drug Use History: None Reported - Past Family History Mother Family Medical History: Cancer Additional Family Medical History / Comment(s): BREAST <Anjali Garcia - Last Filed: 03/02/24 11:58> General Exam Limitations: no limitations <Anjali Garcia - Last Filed: 03/02/24 11:58> <Martín Aparicio - Last Filed: 03/02/24 14:59> - General Exam Comments Initial Comments: Visual Physical Exam Vital signs reviewed General: Well-appearing, nontoxic, no acute distress. Head: Normocephalic, atraumatic Eyes: PERRLA, EOMI ENT: Airway patent Chest: Nonlabored breathing Skin: No visual rash, normal skin tone Neuro: Alert and oriented 3 Musculoskeletal: No gross abnormalities (Anjali Garcia) GENERAL: Patient is well-developed and well-nourished. Patient is nontoxic and well- hydrated and is in mild distress. ENT: Neck is soft and supple. No significant lymphadenopathy is noted. Oropharynx is clear. Moist mucous membranes. Neck has full range of motion without eliciting any pain. EYES: The sclera were anicteric and conjunctiva were pink and moist. Extraocular movements were intact and pupils were equal round and reactive to light. Eyelids were unremarkable. PULMONARY: Unlabored respirations. Good breath sounds bilaterally. No audible rales rhonchi or wheezing was noted. CARDIOVASCULAR: There is a regular rate and rhythm without any murmurs gallops or rubs. ABDOMEN: Soft and nontender with normal bowel sounds. SKIN: Skin is clear with no lesions or rashes and otherwise unremarkable. NEUROLOGIC: Patient is alert and oriented x3. Cranial nerves II through XII are grossly intact. Motor and sensory are also intact. Normal speech, volume and content. Symmetrical smile. MUSCULOSKELETAL: Normal extremities with adequate strength and full range of motion. LYMPHATICS: No significant lymphadenopathy is noted PSYCHIATRIC: Normal psychiatric evaluation. (Martín Aparicio) Course Vital Signs 03/02/24 03/02/24 11:47 13:12 Temperature 98.3 F Pulse Rate 75 72 Respiratory 20 18 Rate Blood Pressure 159/80 117/77 O2 Sat by Pulse 97 97 Oximetry Chest Pain MDM <Anjali Garcia - Last Filed: 03/02/24 11:58> <Martín Aparicio - Last Filed: 03/02/24 14:59> - [facility] I performed the quick note portion of this chart. Electronically signed by Anjali Garcia PA-C (Anjali Garcia) EKG is interpreted by myself but EKG shows a sinus rhythm at 71 bpm WI was 158 QRS is 89 QT interval is 372 QTc is 394. Patient's EKG shows no ST segment ovation or depression. Was pt. sent in by a medical professional or institution (ISABEL Mata, CRAFT WORKER, urgent care, hospital, or fdc...) When possible be specific @ -No Did you speak to anyone other than the patient for history (EMS, parent, family, police, friend...)? What history was obtained from this source @ -No Did you review nursing and triage notes (agree or disagree)? Why? @ -I reviewed and agree with nursing and triage notes Were old charts reviewed (outside hosp., previous admission, EMS record, old EKG, old radiological studies, urgent care reports/EKG's, fdc records)? Report findings @ -No old charts were reviewed Differential Diagnosis? @ -[facility] differential chest EKG interpreted by me (3pts min.). @ -As above X-rays interpreted by me (1pt min.). @ -Chest x-ray shows no acute abnormality CT interpreted by me (1pt min.). @ -None done U/S interpreted by me (1pt. min.). @ -None done What testing was considered but not performed or refused? (CT, X-rays, U/S, labs)? Why? @ -None What meds were considered but not given or refused? Why? @ -None Did you discuss the management of the patient with other professionals (professionals i.e. , PA, CRAFT WORKER, lab, RT, psych nurse, transition social worker, academic program specialist, teacher, real estate officer, rn case management)? Give summary @ -[facility] admit the patient I wrote admitting orders. I also consulted cardiology. Was smoking cessation discussed for >3mins.? @ -No Was critical care preformed (if so, how long)? @ -No Were there social determinants of health that impacted care today? How? (Homelessness, low income, unemployed, alcoholism, drug addiction, transportation, low edu. Level, literacy, decrease access to med. care, care home, rehab)? @ -No Was there de-escalation of care discussed even if they declined (Discuss DNR or withdrawal of care, Hospice)? DNR status @ -No What co-morbidities impacted this encounter? (DM, HTN, Smoking, COPD, CAD, Cancer, CVA, ARF, Chemo, Hep., AIDS, mental health diagnosis, sleep apnea, morbid obesity)? @ -None Was patient admitted / discharged? Hospital course, mention meds given and route, prescriptions, significant lab abnormalities, going to OR and other pertinent info. @ -Patient was given aspirin Nitropaste in emergency department her chest pain was significantly better on arrival and dissipated while she was here. Patient's troponin was normal. X-ray was normal. [facility] Undiagnosed new problem with uncertain prognosis? @ -No Drug Therapy requiring intensive monitoring for toxicity (Heparin, Nitro, Insulin, Cardizem)? @ -No Were any procedures done? @ -No Diagnosis/symptom? @ -Chest pain Acute, or Chronic, or Acute on Chronic? @ -Acute Uncomplicated (without systemic symptoms) or Complicated (systemic symptoms)? @ -Complicated Side effects of treatment? @ -No Exacerbation, Progression, or Severe Exacerbation? @ -No Poses a threat to life or bodily function? How? (Chest pain, [place], [place], pneumonia, PE, COPD, DKA, ARF, appy, cholecystitis, CVA, Diverticulitis, Homicidal, Suicidal, threat to staff... and all critical care pts) @ -Yes this can lead to heart attack and endorgan dysfunction (Martín Aparicio) Disposition <Anjali Garcia - Last Filed: 03/02/24 11:58> Time of Disposition: 14:59 <Martín Aparicio - Last Filed: 03/02/24 14:59> Clinical Impression: Chest pain Disposition: ADMITTED IP TO THIS HOSP Referrals: Candi Avery MD [Primary Care Provider] - 1-2 days
[2024-03-02 12:54] LABS: Basophils % (A) 0 %; Eosinophils # (A) 0.1 k/uL (0-0.7); Eosinophils % (A) 2 %; HCT 45.1 % (34.0-46.0); HGB 14.6 gm/dL (11.4-16.0); Lymphocytes # (A) 1.5 k/uL (1.0-4.8); Lymphocytes % (A) 21 %; MCH 29.7 pg (25.0-35.0); MCHC 32.4 g/dL (31.0-37.0); Mean Platelet Volume 7.8; Monocytes # (A) 0.3 k/uL (0-1.0); Monocytes % (A) 4 %; Neutrophils # (A) 4.9 k/uL (1.3-7.7); Neutrophils % (A) 71 %; Platelet Count 354 k/uL (150-450); RBC 4.91 m/uL (3.80-5.40); RDW 12.3 % (11.5-15.5); WBC 6.9 k/uL (3.8-10.6)
[2024-03-02 13:01] LABS: MCV 91.9 fL (80.0-100.0)
[2024-03-02 13:04] LABS: ALT 30 U/L (4-34); AST 29 U/L (14-36); African American GFR (CKD) 87 (>60 ml/min/1.73 sqM); Albumin 4.2 g/dL (3.5-5.0); Alkaline Phosphatase 78 U/L (38-126); Anion Gap 8 mmol/L; Blood Urea Nitrogen 18 mg/dL (7-17); Calcium 9.7 mg/dL (8.4-10.2); Carbon Dioxide 26 mmol/L (22-30); Chloride 105 mmol/L (98-107); Glucose 110 mg/dL (74-99); Non-African American GFR(CKD) 75 (>60 ml/min/1.73 sqM); Potassium 4.7 mmol/L (3.5-5.1); Sodium 139 mmol/L (137-145); Total Bilirubin 0.5 mg/dL (0.2-1.3); Total Protein 6.6 g/dL (6.3-8.2)
[2024-03-02] MEDS: NITROGLYCERIN OINT 1 INCH/GM PACKET TOPICAL STA (13:18)
[2024-03-02] MEDS: ASPIRIN 81 MG PO STA (13:18)
--- NOTE | 2024-03-02 13:30 | XR ---
EXAMINATION TYPE: XR chest 2V DATE OF EXAM: 03/02/2024 COMPARISON: NONE HISTORY: Shortness of breath TECHNIQUE: Frontal and lateral views of the chest are obtained. FINDINGS: Scattered senescent parenchymal changes noted. Hyperinflation compatible with COPD. No evidence for infiltrate. No evidence for atelectasis. Heart size is stable. Mediastinal structures are stable and grossly unremarkable. No evidence for hilar prominence. Degenerative changes dorsal spine. IMPRESSION: 1. No evidence for acute pulmonary disease. [facility], , 03/02/2024 1:28 PM
[2024-03-02 14:40] LABS: INR 0.9 (<1.2); Partial Thromboplastin Time 24.7 sec (22.0-30.0); Prothrombin Time 10.2 sec (10.0-12.5)
[2024-03-02] MEDS ORDERED: NITROGLYCERIN SL TABS 0.4 MG TAB SUBLINGUAL PRN (15:03)
[2024-03-02] MEDS ORDERED: metFORMIN 500 MG TAB PO SCH (17:30)
[2024-03-02] MEDS: NITROGLYCERIN OINT 1 INCH/GM PACKET TOPICAL SCH (17:30)
[2024-03-02] MEDS: ACETAMINOPHEN TAB 500 MG TAB PO STA (18:58)
--- NOTE | 2024-03-02 22:37 | P.HPIM ---
History of Present Illness H&P Date: 03/02/24 Chief Complaint: Chest pain 63-year-old female, history of hypertension, diabetes mellitus, who presented to the emergency department stating that the last few days she has not been feeling well but this morning about 10:00 she started having chest discomfort that radiated to her right jaw. Patient also states has been short of breath and diaphoretic with the pain. Patient states now the pain is better but is still there very slightly. Patient is a diabetic with high blood pressure and high cholesterol she has a very strong family history of heart disease. Patient herself has had no heart problems that she knows of. Patient denies any recent fever chills or cough. Patient has any swelling in the legs or calf tenderness. Blood work completed in ED reveals a WBC of 6.9, hemoglobin of 14.6 and platelet count of 354, sodium 139, potassium 4.7, BUNs/creatinine of 18/0.84 and blood glucose of 110, troponin less than 0.012 Review of Systems REVIEW OF SYSTEMS: CONSTITUTIONAL: No fever, no malaise, no fatigue. HEENT: No recent visual problems or hearing problems. Denied any sore throat. CARDIOVASCULAR: No chest pain, orthopnea, PND, no palpitations, no syncope. PULMONARY: No shortness of breath, no cough, no hemoptysis. GASTROINTESTINAL: No diarrhea, no nausea, no vomiting, no abdominal pain. NEUROLOGICAL: No headaches, no weakness, no numbness. HEMATOLOGICAL: Denies any bleeding or petechiae. GENITOURINARY: Denies any burning micturition, frequency, or urgency. MUSCULOSKELETAL/RHEUMATOLOGICAL: Denies any joint pain, swelling, or any muscle pain. ENDOCRINE: Denies any polyuria or polydipsia. The rest of the 14-point review of systems is negative. Past Medical History Past Medical History: Diabetes Mellitus, Hypertension Additional Past Medical History / Comment(s): ROSACEA. History of Any Multi-Drug Resistant Organisms: None Reported Past Surgical History: Hysterectomy Additional Past Surgical History / Comment(s): BREAST LUMPECTOMY-NEGATIVE, L wrist, fatty tumors remove, dental implant Past Anesthesia/Blood Transfusion Reactions: No Reported Reaction Past Psychological History: No Psychological Hx Reported Smoking Status: Former smoker Past Alcohol Use History: Occasional Past Drug Use History: None Reported - Past Family History Mother Family Medical History: Cancer Additional Family Medical History / Comment(s): BREAST Medications and Allergies Home Medications Medication Instructions Recorded Confirmed Type Spironolactone [Aldactone] 50 mg PO QAM 12/01/21 03/02/24 History lisinopriL 2.5 mg PO DAILY 03/02/24 03/02/24 History metFORMIN HCL [Glucophage] 500 mg PO DAILY 03/02/24 03/02/24 History metroNIDAZOLE 1% GEL [Metrogel 1%] 1 applic TOPICAL BID 03/02/24 03/02/24 History Allergies Allergy/AdvReac Type Severity Reaction Status Date / Time Sulfa (Sulfonamide Allergy Anaphylaxis Verified 03/02/24 14:51 Antibiotics) /rash Physical Exam Vitals: Vital Signs Temp Pulse Resp BP Pulse Ox 03/02/24 13:12 72 18 117/77 97 03/02/24 11:47 98.3 F 75 20 159/80 97 Intake and Output 03/02/24 03/02/24 03/02/24 06:59 14:59 22:59 Other: Weight 113.398 kg Patient is well-developed and well-nourished. Patient is nontoxic and well-hydrated and is in mild distress. ENT: Neck is soft and supple. No significant lymphadenopathy is noted. Oropharynx is clear. Moist mucous membranes. Neck has full range of motion without eliciting any pain. EYES: The sclera were anicteric and conjunctiva were pink and moist. Extraocular movements were intact and pupils were equal round and reactive to light. Eyelids were unremarkable. PULMONARY: Unlabored respirations. Good breath sounds bilaterally. No audible rales rhonchi or wheezing was noted. CARDIOVASCULAR: There is a regular rate and rhythm without any murmurs gallops or rubs. ABDOMEN: Soft and nontender with normal bowel sounds. SKIN: Skin is clear with no lesions or rashes and otherwise unremarkable. NEUROLOGIC: Patient is alert and oriented x3. Cranial nerves II through XII are grossly intact. Motor and sensory are also intact. Normal speech, volume and content. Symmetrical smile. MUSCULOSKELETAL: Normal extremities with adequate strength and full range of motion. LYMPHATICS: No significant lymphadenopathy is noted Results CBC & Chem 7: 03/02/24 12:43 03/02/24 12:43 Labs: Abnormal Lab Results - Last 24 Hours (Table) 03/02/24 Range/Units 12:43 BUN 18 H (7-17) mg/dL Glucose 110 H (74-99) mg/dL Assessment and Plan Assessment: 1. Chest pain rule out acute coronary syndrome -Patient will be admitted to telemetry; monitor EKG and cycle troponin -Recommend 2D echo; consult cardiology -We will continue with aspirin 325 mg daily; nitroglycerin 0.4 mg sublingually 5 minutes as needed for chest pain 2. Hypertension; lisinopril 2.5 mg daily; Aldactone 50 mg daily 3. Diabetes mellitus type 2; continue home dose of metformin for 500 mg twice daily; monitor Accu-Cheks before every meal and at bedtime with insulin sliding scale 4. Obesity; patient educated on need for weight reduction DVT prophylaxis; SCDs CODE STATUS; full code
[2024-03-03] MEDS: ACETAMINOPHEN TAB 325 MG TAB PO STA (00:41)
[2024-03-03] MEDS: SPIRONOLACTONE 25 MG TAB PO SCH (08:54)
[2024-03-03] MEDS: metFORMIN 500 MG TAB PO SCH (08:54)
[2024-03-03] MEDS: ASPIRIN 325 MG TAB PO SCH (08:55)
[2024-03-03 09:15] LABS: Basophils # (A) 0.06 X 10*3/uL (0.00-0.10); Basophils % (A) 0.7 %; Eosinophils # (A) 0.15 X 10*3/uL (0.04-0.35); Eosinophils % (A) 1.8 %; HCT 41.4 % (37.2-46.3); HGB 14.1 g/dL (12.0-15.0); Lymphocytes # (A) 1.34 X 10*3/uL (0.90-5.00); Lymphocytes % (A) 15.9 %; MCH 30.9 pg (27.0-32.0); MCHC 34.1 g/dL (32.0-37.0); MCV 90.6 FL (80.0-97.0); Mean Platelet Volume 10.8 FL (9.5-12.2); Monocytes % (A) 7.1 %; NRBC Per 100 WBC 0 X 10*3/uL (0.00-0.01); Neutrophils # (A) 6.22 X 10*3/uL (1.80-7.70); Platelet Count 308 X 10*3/uL (140-440); RBC 4.57 X 10*6/uL (4.10-5.20); RDW 12.2 % (11.5-14.5); WBC 8.41 X 10*3/uL (4.50-10.00)
[2024-03-03 09:29] LABS: BUN/Creat Ratio 20.29 Ratio (12.00-20.00); Blood Urea Nitrogen 14.2 mg/dL (9.0-27.0); Chol/HDL Ratio 4.21 Ratio; Glucose 131 mg/dL (70-110); LDL Cholesterol,Calculated 84.9 mg/dL (0.0-131.0)
[2024-03-03 09:30] LABS: Carbon Dioxide 22.2 mmol/L (21.6-31.8); Chloride 106 mmol/L (96-109); Potassium 5.3 mmol/L (3.5-5.5); Sodium 139 mmol/L (135-145)
[2024-03-03] MEDS: DAPAGLIFLOZIN PROPANEDIOL 10 MG TABLET PO SCH (09:56)
[2024-03-03 12:45] VITALS: BP 146/79; PULSE 92; RESP 17; TEMP 97.6
--- NOTE | 2024-03-03 14:30 | P.CRDCN ---
History of Present Illness Consult date: 03/03/24 Consult reason: chest pain History of present illness: The patient is a 63-year-old female who presented to the emergency room with new onset of chest discomfort. It started in the epigastric area and radiated up through her right anterior chest wall and into her jaw. Pain has since resolved. She has no history of cardiac issues other than mild hypertension. She does have a significant family history of cardiac arrhythmias and congestive heart failure. DIAGNOSTICS: EKG shows sinus mechanism without ST or T wave abnormalities Chest x-ray shows no acute cardiopulmonary process Lab data WBC 8.4, hemoglobin 14.1, Zhu crit 41.4, platelet 308, sodium 139, potassium 5.3, BUN 14, creatinine 0.7, troponins negative x 3, AST 29, ALT 30, triglycerides 174, LDL 84, HDL 37 REVIEW OF SYSTEMS: No fever or chills. No cough or expectoration. No diaphoresis. Patient denies headache, dizziness, blurred vision, double vision. Patient denies any stomach discomfort. No nausea, vomiting. No hematochezia. No hematemesis. Denies any black stools or blood in his stools. Denies dysuria or hematuria. No muscle weakness or numbness. PHYSICAL EXAMINATION: This is a 63-year-old female in no apparent distress at the time of my examination. HEENT: Head is atraumatic, normocephalic. Pupils are equal, round. Sclerae anicteric. Conjunctivae are clear. Mucous membranes of the mouth are moist. Neck is supple. There is no jugular venous distention. No carotid bruit is heard. CHEST EXAMINATION: Lungs are clear to auscultation. No chest wall tenderness is noted on palpation or with deep breathing. HEART EXAMINATION: Heart regular rate and rhythm. S1, S2 heard. No murmurs, gallops or rub. ABDOMEN: Soft, nontender. Bowel sounds are heard. No organomegaly noted. EXTREMITIES: 2+ peripheral pulses with no evidence of peripheral edema and no calf tenderness noted. NEUROLOGIC EXAMINATION: Patient is awake, alert and oriented x3. FINAL ASSESSMENT AND PLAN: Chest discomfort, not indicative of acute coronary syndrome Diabetes mellitus, suboptimal control Morbid obesity, BMI 34 History of hypertension PLAN: Start statin and aspirin therapy Start [facility] for diabetes Encourage ambulation around the unit If there is no chest discomfort with ambulation, may patient may be discharged for outpatient follow-up I am dictating on behalf of Dr Adis Hinkle's history/physical and assessment/plan. Past Medical History Past Medical History: Diabetes Mellitus, Hypertension Additional Past Medical History / Comment(s): ROSACEA. History of Any Multi-Drug Resistant Organisms: None Reported Past Surgical History: Hysterectomy Additional Past Surgical History / Comment(s): BREAST LUMPECTOMY-NEGATIVE, L w rist, fatty tumors remove, dental implant Past Anesthesia/Blood Transfusion Reactions: No Reported Reaction Past Psychological History: No Psychological Hx Reported Smoking Status: Former smoker Past Alcohol Use History: Occasional Additional Past Alcohol Use History / Comment(s): quit smoking 35 yrs ago Past Drug Use History: None Reported - Past Family History Mother Family Medical History: Cancer Additional Family Medical History / Comment(s): BREAST Medications and Allergies Home Medications Medication Instructions Recorded Confirmed Type Spironolactone [Aldactone] 50 mg PO QAM 12/01/21 03/02/24 History lisinopriL 2.5 mg PO DAILY 03/02/24 03/02/24 History metFORMIN HCL [Glucophage] 500 mg PO DAILY 03/02/24 03/02/24 History metroNIDAZOLE 1% GEL [Metrogel 1%] 1 applic TOPICAL BID 03/02/24 03/02/24 H istory Aspirin 81 mg PO DAILY 30 Days #30 tab 03/03/24 Rx Atorvastatin [Lipitor] 10 mg PO HS 30 Days #30 tab 03/03/24 Rx Dapagliflozin Propanediol [Farxiga] 10 mg PO DAILY 30 Days #30 tab 03/03/24 Rx Allergies Allergy/AdvReac Type Severity Reaction Status Date / Time Sulfa (Sulfonamide Allergy Anaphylaxis Verified 03/02/24 14:51 Antibiotics) /rash Physical Exam Vitals: Vital Signs Temp Pulse Pulse Resp BP BP Pulse Ox 03/03/24 12:44 97.6 F 92 17 146/79 97 03/03/24 08:55 93 20 144/91 96 03/03/24 06:00 86 16 153/91 98 03/03/24 00:11 75 18 144/84 95 03/02/24 17:28 93 20 107/70 96 Intake and Output 03/02/24 03/03/24 03/03/24 22:59 06:59 14:59 Other: # Voids 1 Weight 113.398 kg Results 03/03/24 05:20 03/03/24 05:20 Cardiac Enzymes 03/02/24 03/02/24 Range/Units 16:15 18:56 Troponin I <0.012 <0.012 (0.000-0.034) ng/mL Coagulation 03/02/24 Range/Units 14:14 PT 10.2 (10.0-12.5) sec APTT 24.7 (22.0-30.0) sec Lipids 03/03/24 Range/Units 05:20 Triglycerides 174.00 H (0.00-149.00) mg/dL Cholesterol 157.00 (0.00-200.00) mg/dL HDL Cholesterol 37.30 L (40.00-60.00) mg/dL Cholesterol/HDL Ratio 4.21 Ratio CBC 03/03/24 Range/Units 05:20 WBC 8.41 (4.50-10.00) X 10*3/uL RBC 4.57 (4.10-5.20) X 10*6/uL Hgb 14.1 (12.0-15.0) g/dL Hct 41.4 (37.2-46.3) % Plt Count 308 (140-440) X 10*3/uL Comprehensive Metabolic Panel 03/03/24 Range/Units 05:20 Sodium 139 (135-145) mmol/L Potassium 5.3 (3.5-5.5) mmol/L Chloride 106 (96-109) mmol/L Carbon Dioxide 22.2 (21.6-31.8) mmol/L BUN 14.2 (9.0-27.0) mg/dL Creatinine 0.7 (0.6-1.5) mg/dL Glucose 131 H (70-110) mg/dL Calcium 9.0 (8.7-10.3) mg/dL Current Medications Generic Name Dose Route Start Last Admin Trade Name Freq PRN Reason Stop Dose Admin Aspirin 81 mg 03/04/24 09:00 Aspirin 81 Mg PO DAILY [facility] Atorvastatin Calcium 10 mg 03/03/24 21:00 Atorvastatin 10 Mg Tab PO [facility] Dapagliflozin 10 mg 03/03/24 09:45 03/03/24 09:56 Dapagliflozin Propanediol 10 Mg Tablet PO 10 mg DAILY [facility] Administration Lisinopril 2.5 mg 03/03/24 09:00 03/03/24 08:54 Lisinopril 2.5 Mg Tab PO 2.5 mg DAILY [facility] Administration Metformin HCl 500 mg 03/03/24 07:30 03/03/24 08:54 Metformin 500 Mg Tab PO 500 mg W/BRKFST [facility] Administration Spironolactone 50 mg 03/03/24 09:00 03/03/24 08:54 Spironolactone 25 Mg Tab PO 50 mg QAM [facility] Administration Intake and Output 03/02/24 03/03/24 03/03/24 22:59 06:59 14:59 Other: # Voids 1 Weight 113.398 kg Patient Weight 03/04/24 06:59 Weight 113.398 kg 03/03/24 05:20 03/03/24 05:20
[2024-03-03] MEDS ORDERED: ATORVASTATIN 10 MG TAB PO SCH (21:00)
[2024-03-04] MEDS ORDERED: ASPIRIN 81 MG PO SCH (09:00)
--- NOTE | 2024-03-25 18:39 | P.DS ---
Providers Date of admission: 03/02/24 15:03 Expected date of discharge: 03/03/24 Attending physician: Yazan Soto Consults: 03/02/24 15:03 Consult Physician Urgent Consulting Provider: [facility] Consult Reason/Comments: Chest pain Do you want consulting provider notified?: Yes [facility] Hospital Course: 63-year-old female who presented to the emergency room with new onset of chest discomfort. It started in the epigastric area and radiated up through her right anterior chest wall and into her jaw. Pain has since resolved. She has no history of cardiac issues other than mild hypertension. She does have a significant family history of cardiac arrhythmias and congestive heart failure. DIAGNOSTICS: EKG shows sinus mechanism without ST or T wave abnormalities Chest x-ray shows no acute cardiopulmonary process Lab data WBC 8.4, hemoglobin 14.1, Zhu crit 41.4, platelet 308, sodium 139, potassium 5.3, BUN 14, creatinine 0.7, troponins negative x 3, AST 29, ALT 30, triglycerides 174, LDL 84, HDL 37 FINAL ASSESSMENT AND PLAN: Chest discomfort, not indicative of acute coronary syndrome Diabetes mellitus, suboptimal control Morbid obesity, BMI 34 History of hypertension PLAN: Start statin and aspirin therapy Start Farxiga for diabetes Encourage ambulation around the unit If there is no chest discomfort with ambulation, may patient may be discharged for outpatient follow-up Patient has been ambulating in the hallway and remains chest pain-free. Stable for discharge Plan - Discharge Summary New Discharge Prescriptions: New Aspirin 81 mg PO DAILY 30 Days #30 tab Dapagliflozin Propanediol [Farxiga] 10 mg PO DAILY 30 Days #30 tab Atorvastatin [Lipitor] 10 mg PO HS 30 Days #30 tab Continue lisinopriL 2.5 mg PO DAILY Spironolactone [Aldactone] 50 mg PO QAM metroNIDAZOLE 1% GEL [Metrogel 1%] 1 applic TOPICAL BID metFORMIN HCL [Glucophage] 500 mg PO DAILY Discharge Medication List Spironolactone [Aldactone] 50 mg PO QAM 12/01/21 [History] lisinopriL 2.5 mg PO DAILY 03/02/24 [History] metFORMIN HCL [Glucophage] 500 mg PO DAILY 03/02/24 [History] metroNIDAZOLE 1% GEL [Metrogel 1%] 1 applic TOPICAL BID 03/02/24 [History] Aspirin 81 mg PO DAILY 30 Days #30 tab 03/03/24 [Rx] Atorvastatin [Lipitor] 10 mg PO HS 30 Days #30 tab 03/03/24 [Rx] Dapagliflozin Propanediol [Farxiga] 10 mg PO DAILY 30 Days #30 tab 03/03/24 [Rx] Follow up Appointment(s)/Referral(s): Adis Hinkle MD [STAFF PHYSICIAN] - 1 Week (please call Tuesday for an appointment be sure to tell them you were a patient in the hospital when you call the office! ) Candi Avery MD [Primary Care Provider] - 1-2 days Patient Instructions/Handouts: Chest Pain (GEN) Discharge Disposition: HOME SELF-CARE
== END 2024-03-03 16:20 | disposition home or self-care (01) ==
LOC: EC 11:46 → 6NMEDSUR 15:03
PROVIDERS: ADMIT Hospitalist; ATTEND Hospitalist
DX: R07.89 Other chest pain (principal); E78.00 Pure hypercholesterolemia, unspecified; I10 Essential (primary) hypertension; E11.9 Type 2 diabetes mellitus without complications; E66.01 Morbid (severe) obesity due to excess calories; Z68.34 Body mass index [BMI] 34.0-34.9, adult; Z87.891 Personal history of nicotine dependence; Z79.82 Long term (current) use of aspirin; Z79.84 Long term (current) use of oral hypoglycemic drugs; Z79.899 Other long term (current) drug therapy; Z88.2 Allergy status to sulfonamides; Z82.49 Family history of ischemic heart disease and other diseases of the circulatory system
CPT/HCPCS: 99285; 36415; 93005; 80061; 80053; 80048; 83735; 84484; 85025 ×2; 85610; 85730; 71046; G0378 ×2